=== PATIENT | female | born 2005 | race Hispanic/Latino ===

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

== ENCOUNTER 2025-04-27 22:53 | Emergency (ER) | payer MEDICAID ==
[~2025-04-27] VITALS: Ht 152.4 cm; Wt 68.0 kg
[~2025-04-27 22:53] MED LIST changes: +IBUP-1492 PO; -IBUP-2070 PO; +METO5 PO; +ONDA-243 PO; -ONDA4TAB10 PO; +POLY17PO4 PO
[2025-04-27 22:54] VITALS: TEMP 97.2
--- NOTE | 2025-04-27 22:56 | NUR ---
UA CUP PROVIDED
--- NOTE | 2025-04-27 23:44 | NUR ---
EDIT TO TRIAGE TO FIX SPELLING
--- NOTE | 2025-04-27 23:53 | ERN ---
General Chief Complaint: Headache Stated Complaint: HEADACHE Time Seen by MD: 23:17 Source: patient History of Present Illness Initial Comments 19-year-old female who just gave three days ago at [facility]. During her labor she had a epidural placed. The next day she had severe headaches which were attributed to the lumbar puncture and a dural puncture. The patient went back to [facility] and had a blood patch placed. They prescribed Fioricet Reglan and doxylamine paroxetine. Pharmacist advised her that since she was breast-feeding she could not take the Fioricet. Unfortunately her symptoms not improve and she is here today at this hospital for treatment. Allergies: Coded Allergies: No Known Allergies (Unverified Allergy, Unknown, 02/22/19) Home Meds Active Scripts Metoclopramide HCl (Reglan) 5 Mg Tab, 5 MG PO BID for 5 Days, #10 TAB Prov:DOMONIQUE HOWARD [facility] 11/22/23 Polyethylene Glycol 3350 (Miralax) 17 Gram Powd.pack, 17 GM PO DAILY for 5 Days, #5 EACH Prov:DOMONIQUE HOWARDP 11/22/23 Ibuprofen (Ibuprofen) 600 Mg Tablet, 600 MG PO Q6H PRN for PAIN, #30 TAB Prov:TOM DIALLO MD 09/28/21 Ciprofloxacin HCl/Dexameth (Ciprodex Otic Suspension) 7.5 Ml Drops.susp, 4 DROP OT BID for 7 Days, #5 DROP Prov:TOM DIALLO MD 09/28/21 Ondansetron (Ondansetron Odt) 4 Mg Tab.rapdis, 4 MG PO TID, #21 TAB Prov:AUSTYN FALL 04/27/21 Mupirocin (Mupirocin Ointment) 22 Gm Oint, 1 APPL TP BID for 10 Days, #30 G Prov:KRUPA RICE 04/25/21 Ibuprofen (Ibuprofen) 600 Mg Tablet, 600 MG PO Q6H PRN for PAIN, #15 TAB Prov:KRUPA RICE 04/25/21 Cephalexin (Cephalexin) 500 Mg Capsule, 500 MG PO TID for 10 Days, #30 CAP Prov:KRUPA RICE 04/25/21 Sulfamethoxazole/Trimethoprim (Bactrim Ds Tablet) 1 Each Tablet, 1 TAB PO BID for 10 Days, #20 TAB Prov:DWAYNEKRUPA SEPULVEDA 04/25/21 Past Medical History Past Medical History: No Pertinent History Past Surgical History: None Family History Family History: Negative Social History Social History: Negative, Lives with family Female( History) History: Not Applicable Constitutional: (-) chills, (-) diaphoresis, (-) fever, (-) malaise, (-) weakness, (-) other documentation EENTM: (-) eye pain, (-) blurred vision, (-) tearing, (-) double vision, (-) ear pain, (-) ear discharge, (-) nose pain, (-) nose congestion, (-) throat p ain, (-) Throat swelling, (-) mouth pain, (-) tooth pain, (-) mouth swelling, (- ) other documentation Respiratory: (-) cough, (-) orthopnea, (-) short of breath, (-) stridor, (-) wheezing, (-) other documentation Cardiovascular: (-) chest pain, (-) edema, (-) palpitations, (-) syncope, (-) dyspnea on exertion, (-) other documentation Gastrointestinal/Abdominal: (+) nausea, (+) vomiting, (+) abdominal pain Genitourinary: (-) vaginal discharge, (-) vaginal bleeding, (-) dysuria, (-) frequency, (-) hematuria, (-) pain, (-) other documentation Musculoskeletal: (-) Neck pain, (-) back pain, (-) Flank Pain, (-) joint pain, (-) joint swelling, (-) muscle pain, (-) muscle stiffness, (-) gout, (-) other documentation Skin: (-) laceration, (-) contusion, (-) abrasion, (-) abscess, (-) rash, (-) change in color, (-) change in hair, (-) change in nails, (-) diaphoresis, (-) dryness, (-) other documentation Neuro: (+) headache Physical Exam General Appearance: (+) moderate distress Orientation: (+) alert, (+) oriented x 3 Head/Face Trauma: No Eye: bilateral eye normal inspection, bilateral eye PERRL, bilateral eye EOMI Ear, Nose, Throat: (+) hearing grossly normal, (+) normal ENT inspection, (+) moist mucous membraine Neck: (+) normal inspection, (+) supple, (+) full range of motion Respiratory: (+) chest non-tender, (+) lungs clear, (+) well ventilated Heart: (+) regular, (+) no gallop Vascular: (+) no edema, (+) normal peripheral pulse Gastrointestinal: (+) soft, (+) non-tender, (+) no organomegaly Results Laboratory and Microbiology Lab and Micro Result Laboratory Tests Test 04/28/25 00:07 04/28/25 00:20 Urine Color LIGHT-YELLOW (YELLOW) Urine Appearance CLEAR (CLEAR) Urine pH 6.5 (5.0-8.0) Urine Specific Pipestem 1.021 (1.001-1.031) Urine Protein 10 mg/dL (NEGATIVE) H Urine Glucose (UA) NEGATIVE mg/dL (NEGATIVE) Urine Ketones 10 mg/dL (NEGATIVE) H Urine Occult Blood MODERATE (NEGATIVE) H Urine Nitrate NEGATIVE (NEGATIVE) Urine Bilirubin NEGATIVE mg/dL (NEGATIVE) Urine Urobilinogen 2.0 mg/dL (0.2-1.0) H Urine Leukocyte Esterase 250 Garrett/uL (NEGATIVE) H Urine RBC 51-100 /HPF (0-1) H Urine WBC 26-50 /HPF (0-1) H Urine Squamous Epithelial Cells RARE /HPF (0-2) Urine Bacteria FEW /HPF (None Seen) White Blood Count 7.8 K/uL (4.8-10.8) Red Blood Count 4.28 MIL/uL (4.00-5.50) Hemoglobin 10.5 g/dL (12.0-16.0) L Hematocrit 34.1 % (36-48) L Mean Corpuscular Volume 79.7 fL (80-100) L Mean Corpuscular Hemoglobin 24.5 pg (27.0-33.0) L Mean Corpuscular Hemoglobin Concent 30.8 g/dL (32.0-36.0) L Red Cell Distribution Width 17.7 % (11.0-15.5) H Platelet Count 435 K/uL (130-400) H Mean Platelet Volume 9.8 fL (7.5-10.5) Immature Granulocyte % (Auto) 0.5 % (0-1) Neutrophils (%) (Auto) 62.4 % (40.0-77.0) Lymphocytes (%) (Auto) 20.8 % (21.0-51.0) L Monocytes (%) (Auto) 15.0 % (3.0-13.0) H Eosinophils (%) (Auto) 0.8 % (0.0-8.0) Basophils (%) (Auto) 0.5 % (0.0-5.0) Neutrophils # (Auto) 4.9 K/uL (1.8-7.7) Lymphocytes # (Auto) 1.6 K/uL (1.0-4.8) Monocytes # (Auto) 1.2 K/uL (0.1-1.0) H Eosinophils # (Auto) 0.06 K/uL (0.00-0.70) Basophils # (Auto) 0.04 K/uL (0.00-0.20) Absolute Immature Granulocyte (auto 0.04 K/uL (0-1) Nucleated Red Blood Cells 0.0 % (0.0-0.19) White Cell Morphology Comment See comments Red Blood Cell Morphology See comments Sodium Level 143 mmol/L (136-145) Potassium Level 3.9 mmol/L (3.5-5.1) Chloride Level 107 mmol/L (101-111) Carbon Dioxide Level 24 mmol/L (21-32) Blood Urea Nitrogen 16 mg/dL (7-18) Creatinine 0.6 mg/dL (0.5-1.0) Glomerular Filtration Rate Calc 133 mL/min (>90) Random Glucose 85 mg/dL (70-105) Total Calcium 8.9 mg/dL (8.5-10.1) Total Bilirubin 0.2 mg/dL (0.2-1.0) Aspartate Amino Transf (AST/SGOT) 22 U/L (10-37) Alanine Aminotransferase (ALT/SGPT) 46 U/L (12-78) Alkaline Phosphatase 241 U/L (50-136) H Total Protein 7.1 g/dL (6.0-8.3) Albumin 3.0 g/dL (3.5-5.0) L MDM Patient gives good history for lumbar puncture headache. I will try and treat her symptoms with fluids, Pepcid and Zofran. I will also order labs to rule out any electrolyte abnormalities. Patient has a urinary tract infection as well. After the fluid in the Pepcid she does feel little bit better still has a headache but it is improved and she wants to go home. ED Course Orders Procedure Category Date Status Time Lactated Ringers PHA 04/27/25 Complete 1000ml (Lactated 23:46 Famotidine 20mg Vial PHA 04/28/25 Complete (Pepcid 20mg Vial) 00:00 Cbc With Differential LAB 04/27/25 Complete 23:46 Comprehensive LAB 04/27/25 Complete Metabolic Panel 23:46 Urinalysis Profile LAB 04/27/25 Complete 23:46 Culture Urine MANDY 04/28/25 In Process 00:18 Ondansetron 4mg PHA 04/28/25 Complete Tablet (Zofran 4mg 01:00 Current Medications Medications (Trade) Dose Ordered Sig/Delfino Route PRN Reason Start Time Stop Time Status Last Admin Dose Admin Famotidine (Pepcid 20mg Vial) 20 mg ONCE ONCE IV 04/28/25 00:00 04/28/25 00:01 DC 04/28/25 00:26 Lactated Ringer's (Lactated Ringers 1000ml) 1,000 ml BOLUS STAT IV 04/27/25 23:46 04/27/25 23:53 DC 04/28/25 00:26 Ondansetron HCl (zoFRAN 4MG TABLET) 4 mg ONCE ONCE PO 04/28/25 01:00 04/28/25 01:01 DC Vital Signs Date Time Temp Pulse Resp B/P (MAP) Pulse Ox O2 Delivery O2 Flow Rate FiO2 04/28/25 02:32 70 18 125/74 98 Room Air* 0 04/28/25 01:29 70 18 134/76 98 Room Air* 0 21 04/28/25 00:48 60 18 134/76 98 Room Air* 0 21 04/27/25 22:54 97.2 79 16 135/69 99 Room Air DX & DISP Disposition: Discharge Departure Impression: Primary Impression: Post lumbar puncture headache Additional Impression: Infection of urinary catheter Condition: Stable Scripts Famotidine (Famotidine) 20 Mg Tablet 1 TAB PO BID for 30 Days, #60 TAB 0 Refills Prov: FERNY MCCLAIN MD 04/28/25 Ondansetron (Ondansetron Odt) 4 Mg Tab.rapdis 1 TAB PO Q6HPRN PRN for nausea/vomiting for 4 Days, #16 TAB 0 Refills Prov: FERNY MCCLAIN MD 04/28/25 Nitrofurantoin Macrocrystal (Nitrofurantoin) 100 Mg Capsule 1 CAP PO BID for 7 Days, #14 CAP 0 Refills Prov: FERNY MCCLAIN MD 04/28/25 Additional Instructions: You have post lumbar puncture headache. For your symptom control you can do Pepcid you can also do Zofran and you need to stay well hydrated. If you are not breast-feeding you could do caffeine or Fioricet. Please return if you can not stay hydrated and can not keep any liquids or food down. You also have a urinary tract infection I have written for a prescription for antibiotics for that. Referrals: LAURA HERRERA (PCP) FERNY MCCLAIN MD Apr 27, 2025 23:53
[2025-04-28 00:17] LABS: APPEARANCE,URINE CLEAR (CLEAR); GLUCOSE, URINE (UA) NEGATIVE (NEGATIVE); LEUKOCYTE ESTERASE ,URINE 250 Leu/uL (NEGATIVE); NITRATE,URINE NEGATIVE (NEGATIVE); OCCULT BLOOD,URINE MODERATE (NEGATIVE)
[2025-04-28 00:18] LABS: ADD UA MICROSCOPIC YES
[2025-04-28 00:23] LABS: SQUAMOUS EPITHELIAL CELL,UR RARE /HPF (0-2)
[2025-04-28] MEDS: FAMOTIDINE 20MG VIAL IV ONE (00:26)
[2025-04-28] MEDS: LACTATED RINGERS 1000ML IV STA (00:26)
[2025-04-28 00:37] LABS: CREATININE 0.6 mg/dL (0.5-1.0); GLOMERULAR FILTR. RATE CALC 133.0 mL/min (>90); GLUCOSE,RANDOM 85.0 mg/dL (70-105); IMMATURE GRANULOCYTE ABSOLUTE 0.04 K/uL (0-1); NUCLEATED RED BLOOD CELLS 0.0 % (0.0-0.19); PLATELET COUNT (AUTO) 435 K/uL (130-400); RED BLOOD CELL COUNT(AUTO) 4.28 MIL/uL (4.00-5.50); RED CELL DISTRIBUTION WIDTH 17.7 % (11.0-15.5); SODIUM SERUM 143.0 mmol/L (136-145); UREA NITROGEN, BLOOD 16.0 mg/dL (7-18); WHITE BLOOD COUNT (AUTO) 7.8 K/uL (4.8-10.8)
[2025-04-28 00:41] LABS: ASPARTATE AMINOTRANSFERASE 22.0 U/L (10-37); TOTAL PROTEIN, SERUM 7.1 g/dL (6.0-8.3)
[2025-04-28 02:32] VITALS: BP 125/74; PULSE 70; RESP 18; O2SAT 98
[2025-04-28] MEDS ORDERED: NITR100C PO (02:42)
[2025-04-28] MEDS ORDERED: ONDA-243 PO (02:42)
[2025-04-28] MEDS ORDERED: FAMO20TA8 PO (02:43)
== END 2025-04-28 03:08 | disposition home or self-care (01) ==
LOC: EDH 22:53
DX: G97.1 Other reaction to spinal and lumbar puncture (principal); Z79.899 Other long term (current) drug therapy
CPT/HCPCS: 36415; 80053; 81001; 85025; 87086; 87186; 96374; 99283; J3490; J7120

== ENCOUNTER 2025-08-29 17:30 | Emergency (ER) | payer MEDICAID ==
[~2025-08-29] VITALS: Ht 152.4 cm; Wt 54.4 kg
--- NOTE | 2025-08-29 17:38 | ERN ---
ED Note History of Present Illness Stated Complaint: ABSCESS Chief Complaint: Abscess Time Seen by MD: 17:33 Dictation: PATIENT IS A 20-YEAR-OLD FEMALE WITH A LEFT AXILLA SWELLING AND ERYTHEMA SHE HAS HAD FOR TWO DAYS. NO FEVER NO CHILLS NO NAUSEA VOMITING. SHE DOES STATE SHE SHAVES UNDER HER ARMS. PRIMARY CARE DOCTOR [facility]. SHE HAS TAKEN NOTHING PRIOR TO ARRIVAL FOR PAIN. Allergies: Coded Allergies: No Known Allergies (Unverified Allergy, Unknown, 02/22/19) Home Meds Active Scripts Ibuprofen (Ibuprofen) 600 Mg Tablet, 600 MG PO Q6H PRN for PAIN, #30 TAB Prov:SANDY MCFARLAND [facility]WER 08/31/25 Cephalexin (Cephalexin) 500 Mg Tablet, 500 MG PO QID for 7 Days, #28 TAB Prov:SANDY MCFARLAND LABEL SEWER 08/31/25 Famotidine (Famotidine) 20 Mg Tablet, 1 TAB PO BID for 30 Days, #60 TAB 0 Refills Prov:FERNY MCCLAIN MD 04/28/25 Ondansetron (Ondansetron Odt) 4 Mg Tab.rapdis, 1 TAB PO Q6HPRN PRN for nausea/ vomiting for 4 Days, #16 TAB 0 Refills Prov:FERNY MCCLAIN MD 04/28/25 Nitrofurantoin Macrocrystal (Nitrofurantoin) 100 Mg Capsule, 1 CAP PO BID for 7 Days, #14 CAP 0 Refills Prov:FERNY MCCLAIN MD 04/28/25 Metoclopramide HCl (Reglan) 5 Mg Tab, 5 MG PO BID for 5 Days, #10 TAB Prov:DOMONIQUE HOWARD [facility] 11/22/23 Polyethylene Glycol 3350 (Miralax) 17 Gram Powd.pack, 17 GM PO DAILY for 5 Days, #5 EACH Prov:HOWARDTRDOMONIQUE LABEL SEWER 11/22/23 Ibuprofen (Ibuprofen) 600 Mg Tablet, 600 MG PO Q6H PRN for PAIN, #30 TAB Prov:TOM DIALLO MD 09/28/21 Ciprofloxacin HCl/Dexameth (Ciprodex Otic Suspension) 7.5 Ml Drops.susp, 4 DROP OT BID for 7 Days, #5 DROP Prov:TOM DIALLO MD 09/28/21 Ondansetron (Ondansetron Odt) 4 Mg Tab.rapdis, 4 MG PO TID, #21 TAB Prov:AUSTYN FALL 04/27/21 Mupirocin (Mupirocin Ointment) 22 Gm Oint, 1 APPL TP BID for 10 Days, #30 G Prov:VASQUESJHONNY MERAZPAT SEPULVEDA 04/25/21 Ibuprofen (Ibuprofen) 600 Mg Tablet, 600 MG PO Q6H PRN for PAIN, #15 TAB Prov:KRUPA RICE 04/25/21 Cephalexin (Cephalexin) 500 Mg Capsule, 500 MG PO TID for 10 Days, #30 CAP Prov:VASQUESDEANKRUPA Anu COCO 04/25/21 Sulfamethoxazole/Trimethoprim (Bactrim Ds Tablet) 1 Each Tablet, 1 TAB PO BID for 10 Days, #20 TAB Prov:JAVIERJALEESAKRUPA Anu COCO 04/25/21 Past Medical History Past Medical History: No Pertinent History Surgical History: None Family History: Negative Social History: Negative, Lives with family History: Not Applicable RN Note Reviewed/Agreed w/PFSH: Yes Review of System Dictation CONSTITUTIONAL: NEGATIVE EXCEPT FOR HPI HEAD/FACE: NEGATIVE EXCEPT FOR HPI EENT: NEGATIVE EXCEPT FOR HPI RESPIRATORY: NEGATIVE EXCEPT FOR HPI GASTROINTESTINAL/ABDOMINAL: NEGATIVE EXCEPT FOR HPI GENITOURINARY: NEGATIVE EXCEPT FOR HPI MUSCULOSKELETAL: NEGATIVE EXCEPT FOR HPI INTEGUMENTARY: NEGATIVE EXCEPT FOR HPI LEFT AXILLA ERYTHEMA SWELLING NEUROLOGICAL/PSYCH: NEGATIVE EXCEPT FOR HPI HEMATOLOGIC/LYMPHATIC: NEGATIVE EXCEPT FOR HPI ALL SYSTEMS NEGATIVE, EXCEPT NOTED ABOVE. 13 POINT REVIEW OF SYSTEMS ASSESSED AND ALL NEGATIVE EXCEPT FOR ABOVE. Initial Vital Sign VS Vital Signs Date Time Temp Pulse Resp B/P (MAP) Pulse Ox O2 Delivery O2 Flow Rate FiO2 08/29/25 17:32 98.1 76 20 111/59 98 Room Air 08/29/25 18:08 0 21 Physical Exam Dictation VITAL SIGNS REVIEWED GENERAL APPEARANCE: ALERT, ORIENTED X 3, MILD ACUTE DISTRESS, WELL DEVELOPED, NOURISHED. HEAD AND FACE: NON-TRAUMATIC. EYES: PERRL, PINK CONJUNCTIVAS, EYELID NO TRAUMA, ANTERIOR CHAMBER WITH ARCUS SENILIS. EARS: PINNAS INTACT AND NO SIGNS OF TRAUMA OR ERYTHEMA EAR CANALS CLEAR AND NO DISCHARGE TM NO ERYTHEMA NOSE: NO DISCHARGE, NO BLEEDING. OROPHARYNX: MOUTH NORMAL, TONGUE PINK, PHARYNX CLEAR,NO ERYTHEMA, TONSILS NO EXUDATES, NO ABSCESSES NOTED, MUCOUS MEMBRANE MOIST NECK: SUPPLE, NON-TENDER, NO THYROMEGALY, NO MASSES, NO JVD, NO BRUITS BREAST:DEFERRED CHEST:NO TENDERNESS, NO CREPITUS, NO PARADOXICAL MOVEMENT, NO RETRACTIONS LUNGS:CLEAR, WELL-VENTILATED, SYMMETRIC, NO RALES, NO WHEEZING, NO RHONCHI, NO STRIDOR, GOOD BREATH SOUNDS BILATERALLY HEART: REGULAR RATE, REGULAR RHYTHM, NO MURMUR, NO GALLOPS VASCULAR: NO PERIPHERAL EDEMA, ABDOMEN: SOFT, POSITIVE BOWEL SOUNDS, NONDISTENDED, NO GUARDING, NONTENDER, NO REBOUND, NO MASSES NO HEPATOMEGALY, NO SPLENOMEGALY, NO ANGUIANO'S SIGN, NO HERNIAS. RECTAL: DEFERRED GENITAL: DEFERRED NEUROLOGICAL: NORMAL SPEECH, MOTOR FUNCTION INTACT, SENSORY FUNCTION INTACT MUSCULOSKELETAL: NECK NONTENDER, FULL RANGE OF MOTION, BACK NONTENDER, FULL RANGE OF MOTION, EXTREMITIES: NONTENDER, FULL RANGE OF MOTION SKIN: COLOR LEFT AXILLA WITH A APPROXIMATELY 2 X 3 CM ERYTHEMATOUS SWOLLEN LESION. FLUCTUANT LYMPHATIC: DEFERRED Results (Laboratory/Radiology) Labs Reviewed?: Yes ED Course ED Course Orders Procedure Category Date Status Time Lidocaine Hcl 1% 20ml PHA 08/29/25 Complete Vial (Lidocaine Hc 18:00 Cephalexin 500 Mg PHA 08/29/25 Complete Capsule (Keflex 500 Mg 18:00 Acetaminophen 500mg PHA 08/29/25 Complete Tab (Tylenol 500mg T 18:00 Aerobic Culture MANDY 08/29/25 In Process 17:35 Current Medications Medications (Trade) Dose Ordered Sig/Delfino Route PRN Reason Start Time Stop Time Status Last Admin Dose Admin Acetaminophen (TYLenol 500MG TAB) 1,000 mg ONCE ONCE PO 08/29/25 18:00 08/29/25 18:01 DC 08/29/25 18:36 Cephalexin (Keflex 500 MG CAPS) 1,000 mg ONCE ONCE PO 08/29/25 18:00 08/29/25 18:01 DC 08/29/25 18:35 Lidocaine HCl (Lidocaine HCl 1% 20ml Vial) 10 ml ONCE INJ 08/29/25 18:00 08/29/25 18:40 DC 08/29/25 18:24 Vital Signs Date Time Temp Pulse Resp B/P (MAP) Pulse Ox O2 Delivery O2 Flow Rate FiO2 08/29/25 18:08 98.1 74 20 111/55 98 Room Air* 0 21 08/29/25 17:32 98.1 76 20 111/59 98 Room Air 1620/PATIENT HAD CALLED AND SAID THE [facility] STORE SHE HAD BUT HAS A PER HER PROVIDER WAS CLOSED. SHE REQUESTED I SEND THE PRESCRIPTIONS TO THE [facility] ON [facility] IN [place] THIS WAS DONE. Medical Decision Making MDM MEDICAL DECISION-MAKING BASED ON EMPIRIC TREATMENT FOR AN AXILLARY ABSCESS ANTIBIOTICS WERE INITIATED PAIN WAS MANAGED ORALLY I&D WAS PERFORMED WITH CULTURE SENT TO LAB. PATIENT IS SENT HOME ON IBUPROFEN AND KEFLEX WOUND CARE INSTRUCTIONS GIVEN PATIENT TOLD SEE YOUR DOCTOR AT [facility] Procedure Procedure Dictation: 1820/EDILSON RN IN ROOM WITH THE EXAM PROCEDURE EXPLAINED TO PATIENT SHE AGREED TO PROCEED LEFT AXILLA WAS PREPPED WITH BETADINE USED 4 ML LIDOCAINE 1% PLAIN FOR LOCAL ANESTHESIA 11. SCALPEL WAS USED TO CREATE A 3 CM LACERATION LOCULATIONS WERE EXPLORED PATIENT HAD APPROXIMATELY 5-6 ML OF PURULENT DRAINAGE CULTURE WAS SENT TO LAB PATIENT TOLERATED WELL NO PACKING DX & DISP Disposition: Discharge Departure Impression: Primary Impression: Abscess of axilla, left Condition: Stable Scripts Ibuprofen (Ibuprofen) 600 Mg Tablet 600 MG PO Q6H PRN for PAIN, #30 TAB Prov: SANDY MCFARLAND LAB[facility]WER 08/31/25 Cephalexin (Cephalexin) 500 Mg Tablet 500 MG PO QID for 7 Days, #28 TAB Prov: SANDY MCFARLAND LABEL SEWER 08/31/25 Additional Instructions: FOLLOW-UP WITH PRIMARY CARE PROVIDER IN 1 TO 2 DAYS. TAKE MEDICATIONS DIRECTED HERE IN THE EMERGENCY ROOM. OKAY TO CONTINUE HOME MEDICATIONS UNLESS OTHERWISE DISCUSSED DURING YOUR VISIT IN THE EMERGENCY ROOM TODAY. RETURN TO YOUR NEAREST EMERGENCY ROOM IF SYMPTOMS WORSEN OR IF THERE IS NO IMPROVEMENT. CALL 911 IF YOU NEED IMMEDIATE ASSISTANCE. TAKE TYLENOL OR MOTRIN [id number] NEEDED AND IF NO CONTRAINDICATIONS ARE PRESENT. INCREASE ORAL HYDRATION. A WOUND CULTURE OR URINE CULTURE WAS ORDERED HERE IN THE EMERGENCY ROOM DEPARTMENT PLEASE FOLLOW-UP WITH PRIMARY CARE PROVIDER AND ADVISE THEM TO GET REPEAT PORTS FROM OUR FACILITY. IF YOU HAD ANY ELISHA WRAP/SPLINTS THAT WERE APPLIED HERE, PLEASE DO NOT REMOVE THEM UNTIL YOU SEE YOUR PRIMARY CARE OR SPECIALTY. OKAY TO WASH LEFT ARM WITH SOAP AND WATER. DRY THOROUGHLY AND THEN REPLACE WITH A CLEAN DRESSING TAKE ANTIBIOTICS DIRECTED UNTIL GONE. TAKE IBUPROFEN NEEDED WITH FOOD FOR PAIN. SEE YOUR DOCTOR AT [facility] ON MONDAY FOR FOLLOW UP AND MANAGEMENT Referrals: LAURA HERRERA (PCP) I have reviewed the case, and I agree with, Diagnosis and Plan SANDY MCFARLAND LABEL SEWER Aug 29, 2025 17:38
[2025-08-29 18:08] VITALS: BP 111/55; PULSE 74; RESP 20; TEMP 98; O2SAT 98
[2025-08-29] MEDS: LIDOCAINE HCL 1% 20 ML VIAL INJ SCH (18:24)
== END 2025-08-29 18:40 | disposition home or self-care (01) ==
LOC: EDH 17:30
DX: L02.412 Cutaneous abscess of left axilla (principal); Z79.899 Other long term (current) drug therapy
CPT/HCPCS: 10060; 87070; 87086; 87186; 99283; J2003